=== PATIENT | male | born 1950 | race Caucasian/White ===

== ENCOUNTER → 2018-04-26 | Outpatient (REF) ==
[~2018-04-26] MED LIST: ADVAIR 250/28 DISKU1 IH; ALBUTEROL IH; FLONASE INH; LOTREL 10 MG-401 CAP PO; LOTREL 5 MG-401 CAP PO; METFORMIN500 MG PO; NAPROXEN SOD550 MG PO; NEXIUM40 MG PO; PHENTERMINE15 MG PO; PRISTIQ50 M1 PO; PULMICORT180 MCG/A1 IH; PULMICORT180 MCG/Ac IH; REQUIP XL2 MG PO; VITAMIN D50000 I1 PO; WELLBUTRIN XL300 M1 PO; WELLBUTRIN75 MG PO
== END ==
LOC: ZCOL.LAB 14:47
DX: R50.9 Fever, unspecified (principal)

== ENCOUNTER → 2018-04-26 | Outpatient (REF) ==
[2018-04-26 12:58] LABS: BASO # 0.1 (0.0-0.2); BASO % 0.5 % (0.0-2.0); EOS # 0.5 (0.0-0.7); EOS % 3.8 % (0-4.0); GRAN # 9.3 (1.4-6.5); HEMOGLOBIN 11.9 g/dl (13.5-18.0); LYMPH % 8.6 % (20.0-51.0); MEAN CELL VOLUME 88 fl (80.0-100.0); MEAN CORPUSCULAR HEMOGLOBIN 29 pg (27.0-31.0); MEAN CORPUSCULAR HGB CONC 33 g/dl (33.0-37.0); MEAN PLATELET VOLUME 9.7 fl (7.4-10.4); MONO # 1.1 (0.1-0.6); MONO % 9.4 % (1.7-9.3); PLATELET COUNT 311 K/mm3 (130-400); REDCELL DISTRIBUTION WIDTH-CV 13.2 % (11.5-14.5)
[2018-04-26 13:02] LABS: HEMATOCRIT 35.9 % (42.0-52.0)
== END ==
LOC: ZCOL.LAB 12:47
PROVIDERS: Family Medicine
DX: R50.9 Fever, unspecified (principal)

== ENCOUNTER 2019-02-13 01:26 | Inpatient (IN) | payer MEDICARE, BC ==
[2019-02-13] VITALS (284 sets, daily range): BP systolic 116–131; BP diastolic 74–81; PULSE 65–76; TEMP 98.2–98.4; O2SAT 92–100
[~2019-02-13] VITALS: Ht 165.1 cm; Wt 89.9 kg
[2019-02-13 02:02] LABS: BASO # 0.1 (0.0-0.2); BASO % 0.5 % (0.0-2.0); EOS # 0.4 (0.0-0.7); EOS % 3.9 % (0-4.0); GRAN # 5.5 (1.4-6.5); GRAN % 58.3 % (42.2-75.2); HEMATOCRIT 43.3 % (42.0-52.0); HEMOGLOBIN 14.4 g/dl (13.5-18.0); LYMPH # 2.7 (1.2-3.4); LYMPH % 28.6 % (20.0-51.0); MEAN CELL VOLUME 88 fl (80.0-100.0); MEAN CORPUSCULAR HEMOGLOBIN 29 pg (27.0-31.0); MEAN CORPUSCULAR HGB CONC 33 g/dl (33.0-37.0); MEAN PLATELET VOLUME 9.1 fl (7.4-10.4); MONO # 0.8 (0.1-0.6); PLATELET COUNT 310 K/mm3 (130-400); RED BLOOD COUNT 4.94 M/mm3 (4.20-5.60); REDCELL DISTRIBUTION WIDTH-CV 13.8 % (11.5-14.5)
[2019-02-13 02:07] LABS: PROTHROMBIN TIME 11.2 SECONDS (9.7-12.8)
[2019-02-13 02:13] LABS: ALANINE AMINOTRANSFERASE 17 U/L (21-72); ALBUMIN 4.3 gm/dL (3.5-5.0); ALKALINE PHOSPHATASE 67 U/L (50-136); ANION GAP 10 mmol/L (7-16); AST,SGOT 21 U/L (15-37); BILIRUBIN,TOTAL 0.3 mg/dL (0.0-1.0); BLOOD UREA NITROGEN 20 mg/dL (9-20); CALCIUM 9.2 mg/dL (8.4-10.2); CARBON DIOXIDE 26 mmol/L (22-30); CHLORIDE 103 mmol/L (98-107); CREATININE, serum 0.79 (0.66-1.25); GLUCOSE 118 mg/dL (74-106); POTASSIUM 3.6 mmol/L (3.4-5.0); SODIUM 139 mmol/L (137-145); TOTAL PROTEIN 7.3 gm/dL (6.4-8.2)
[2019-02-13 02:24] LABS: TROPONIN-I < 0.012 ng/mL (0.000-0.035)
[2019-02-13] MEDS ORDERED: BREO ELLIPTA 21 EACH IH (02:36)
[2019-02-13] MEDS ORDERED: FLONASE NASAL S16 GM NS (02:37)
[2019-02-13] MEDS ORDERED: PROVENTIL0.09 MG/A1 IH (02:37)
[2019-02-13] MEDS ORDERED: SINGULAIR 110 MG/TAB PO (02:38)
[2019-02-13] MEDS ORDERED: XYZAL5 MG PO (02:38)
[2019-02-13] MEDS ORDERED: CIALIS5 MG PO (02:39)
[2019-02-13] MEDS ORDERED: NEXIUM 40MG40 MG PO (02:39)
[2019-02-13] MEDS ORDERED: ULTRAM 50MG TAB50 MG PO (03:03)
[2019-02-13] MEDS ORDERED: SOMA 350MG350 MG/TAB PO (03:03)
--- NOTE | 2019-02-13 03:30 | NUR ---
RECEIVED REPORT FROM JEREMIAS SIMMONS IN THE ER. AWAITING ARRIVAL OF PT TO [facility].
--- NOTE | 2019-02-13 03:40 | NUR ---
PT ARRIVES TO [facility]. PT TRANSFERS SELF TO BED AND PLACED ON CONTINUOUS COMPUTER SUPPORT SPECIALIST INSTRUCTOR. CALL LIGHT EDUCATION GIVEN, VERBALIZED UNDERSTANDING. EDUCATED PT ON REMINDER TO CALL IF NEEDING TO GET OOB TO PREVENT FALLS, VERBALIZED UNDERSTANDING. CARDIZEM GTT CONTINUES FROM ER AT 5MG/HR. NOTED PT TO BE IN SR UPON ADMISSION TO ICU. PT DENIES ANY CP OR SHOB AT ADMISSION. URINAL PLACED WITHIN REACH.
--- NOTE | 2019-02-13 04:00 | NUR ---
DR SAM AT BEDSIDE FOR ASSESSMENT AND DISCUSSING POC WITH PT.
--- NOTE | 2019-02-13 04:10 | NUR ---
DR SAM DISCUSSED POC WITH NURSE, CONTINUE CARDIZEM GTT, GIVE PO MEDICATION AT 0500, THEN TURN OFF GTT AT 0600. WILL MONITOR CLOSELY.
--- NOTE | 2019-02-13 04:57 | NUR ---
DR TYLER NOTIFIED OF CONSULT. UPDATED ON PT'S STATUS, HR, ECHO ORDER ALREADY PLACED. STATES WILL SEE PT IN THE MORNING FOR EVALUATION. PT NOTIFIED. VERBALIZED UNDERSTANDING.
--- NOTE | 2019-02-13 07:30 | NUR ---
Bedside report received from JEREMIAS Grissom. Pt resting in bed. VSS.
--- NOTE | 2019-02-13 08:00 | NUR ---
Assessment completed. Pt in bed. No complaints at this time. HR SR on monitor. Discussed plan of care r/t medications, heart rhythm and doctors rounding. Pt verbalized understanding. solar installation technician at bedside setting up. Call light in reach.
--- NOTE | 2019-02-13 09:15 | NUR ---
PROPERTY ASSISTANT student met with the patient to discuss a discharge plan. The patient lives in [place] with his , Tamara. The patient has a cane and walker, if needed and reports independence with ADLs. The patient's PCP is Dr. Hernandez and patient receives medications from [facility] with no difficulties. The patient does not have advanced directives in the EMR but reports they are completed and designate his , Tamara. The patient plans to return home upon discharge with Tamara providing transportation. There are no additional needs at this time.
--- NOTE | 2019-02-13 10:40 | NUR ---
Initial visit; Patient thanked Legal Summer Intern for looking in on him and wishing him God's blessings.
[2019-02-13] MEDS ORDERED: ELIQUIS 5MG PO (12:08)
[2019-02-13] MEDS ORDERED: MULTAQ400 MG PO (12:09)
--- NOTE | 2019-02-13 12:20 | NUR ---
Called pt's PCP Dr Hernandez for follow up appointment. Discused with Dr Hernandez's RN pt's diagnosis, medications and discharge today. Follow up appointment is Feb 27 at 11:30am with Dr Hernandez.
--- NOTE | 2019-02-13 13:30 | NUR ---
Discharge paperwork given to pt. Discussed discharge instructions, education, medications and follow up appointments with pt and pt's . Answered all questions to pt's satisfaction. Pt signed discharge paperwork and is placed in chart.
--- NOTE | 2019-02-13 13:31 | NUR ---
Pt discharged from [facility]. Pt left unit and walked to private vehicle driven by spouse.
== END 2019-02-13 13:31 | disposition home or self-care (01) | DRG 310 ==
LOC: COL.ER 01:26 → IMCU 02:47
PROVIDERS: Emergency Medicine
DX: I48.0 Paroxysmal atrial fibrillation (principal); I10 Essential (primary) hypertension; J45.909 Unspecified asthma, uncomplicated; K21.9 Gastro-esophageal reflux disease without esophagitis; F32.9 Major depressive disorder, single episode, unspecified; M48.061 Spinal stenosis, lumbar region without neurogenic claudication; M54.16 Radiculopathy, lumbar region; Z90.79 Acquired absence of other genital organ(s); Z85.46 Personal history of malignant neoplasm of prostate
CPT/HCPCS: 99223-AI; 99239; J1650; J7030

== ENCOUNTER → 2020-03-28 | Outpatient (RCR) | payer MEDICARE, BC ==
[~2020-03-28] MED LIST changes: +BREO ELLIPTA 21 EACH IH; +CIALIS5 MG PO; +ELIQUIS 5MG PO; +FLONASE NASAL S16 GM NS; +MULTAQ400 MG PO; +NEXIUM 40MG40 MG PO; +PROVENTIL0.09 MG/A1 IH; +SINGULAIR 110 MG/TAB PO; +SOMA 350MG350 MG/TAB PO; +ULTRAM 50MG TAB50 MG PO; +XYZAL5 MG PO
== END | disposition home or self-care (01) ==
LOC: WSST
DX: J04.0 Acute laryngitis (principal); R13.10 Dysphagia, unspecified

== ENCOUNTER 2020-05-26 11:15 | Outpatient (RCR) | payer MEDICARE, BC | END 2020-07-12 | disposition home or self-care (01) | LOC: WSST | DX: R13.13 Dysphagia, pharyngeal phase (principal); R49.0 Dysphonia; J04.0 Acute laryngitis ==

== ENCOUNTER 2021-08-30 07:42 | Emergency (ER) | payer MEDICARE, BC ==
[~2021-08-30] VITALS: Ht 165.1 cm; Wt 86.4 kg
[2021-08-30 07:52] VITALS: TEMP 98.1
[2021-08-30 08:07] LABS: BASO % 0.3 % (0.0-2.0); EOS # 0.1 K/mm3 (0.0-0.7); EOS % 0.9 % (0.0-4.0); GRAN # 6.8 K/mm3 (1.4-6.5); GRAN % 70.3 % (42.2-75.2); HEMATOCRIT 39.5 % (42.0-52.0); HEMOGLOBIN 13.9 g/dl (13.5-18.0); LYMPH # 1.8 K/mm3 (1.2-3.4); LYMPH % 18.9 % (20.0-51.0); MEAN CELL VOLUME 84 fl (80.0-100.0); MEAN CORPUSCULAR HEMOGLOBIN 30 pg (27-31); MEAN CORPUSCULAR HGB CONC 35 g/dl (33.0-37.0); MONO # 0.9 K/mm3 (0.1-0.6); MONO % 9.1 % (1.7-9.3); PLATELET COUNT 357 K/mm3 (130-400); RED BLOOD COUNT 4.71 M/mm3 (4.20-5.60); REDCELL DISTRIBUTION WIDTH-CV 12.8 % (11.5-14.5)
[2021-08-30 08:28] LABS: BILIRUBIN,TOTAL 0.5 mg/dL (0.2-1.2); CREATININE, serum 0.8 mg/dL (0.72-1.25); POTASSIUM 3.6 mmol/L (3.5-4.5); TOTAL PROTEIN 7.2 gm/dL (6.2-8.1)
[2021-08-30] MEDS ORDERED: ZESTRIL 20MG TA20 MG PO (08:41)
[2021-08-30] MEDS ORDERED: 00186-0370-20 IH (08:41)
[2021-08-30] MEDS ORDERED: FLOMAX 0.40.4 MG/CAP PO (08:42)
[2021-08-30] MEDS ORDERED: VITAMIN C500 MG PO (08:42)
[2021-08-30] MEDS ORDERED: COMPLETE MULTI1 TAB PO (08:42)
[2021-08-30] MEDS ORDERED: VITAMIN D31000 I1 PO (08:42)
[2021-08-30] MEDS ORDERED: CITRACAL + D CA1 TAB (08:43)
[2021-08-30] MEDS ORDERED: CEPHALEXIN500 M1 PO (11:14)
[2021-08-30 11:55] VITALS: BP 139/85; PULSE 73
== END 2021-08-30 12:10 | disposition home or self-care (01) ==
LOC: COL.ER 07:42
PROVIDERS: Emergency Medicine
DX: I48.91 Unspecified atrial fibrillation (principal); Z79.01 Long term (current) use of anticoagulants
CPT/HCPCS: C1764; J2704; J7030

== ENCOUNTER 2023-03-31 05:57 | Inpatient (IN) | payer MEDICARE, BC ==
[2023-03-31] VITALS (9 sets, daily range): BP systolic 130–159; BP diastolic 72–95; PULSE 48–136; TEMP 97.7–98.3
[~2023-03-31] VITALS: Ht 165.1 cm; Wt 82.7 kg
[~2023-03-31 05:57] MED LIST changes: +00186-0370-20 IH; +CEPHALEXIN500 M1 PO; +CITRACAL + D CA1 TAB; +COMPLETE MULTI1 TAB PO; +FLOMAX 0.40.4 MG/CAP PO; +VITAMIN C500 MG PO; +VITAMIN D31000 I1 PO; +ZESTRIL 20MG TA20 MG PO
[2023-03-31 06:28] LABS: BASO # 0.1 K/mm3 (0.0-0.2); BASO % 1.7 % (0.0-2.0); EOS # 0.5 K/mm3 (0.0-0.7); EOS % 6.9 % (0.0-4.0); GRAN # 3.1 K/mm3 (1.4-6.5); HEMATOCRIT 42.9 % (42.0-52.0); HEMOGLOBIN 14.2 g/dl (13.5-18.0); LYMPH # 2.3 K/mm3 (1.2-3.4); LYMPH % 34.5 % (20.0-51.0); MEAN CELL VOLUME 90 fl (80.0-100.0); MEAN CORPUSCULAR HEMOGLOBIN 30 pg (27-31); MEAN CORPUSCULAR HGB CONC 33 g/dl (33.0-37.0); MEAN PLATELET VOLUME 9.3 fl (7.4-10.4); MONO # 0.6 K/mm3 (0.1-0.6); MONO % 9.6 % (1.7-9.3); PLATELET COUNT 318 K/mm3 (130-400); RED BLOOD COUNT 4.78 M/mm3 (4.20-5.60); REDCELL DISTRIBUTION WIDTH-CV 13.2 % (11.5-14.5)
[2023-03-31 06:32] LABS: INR 1.2 (0.8-3.0); PARTIAL THROMBOPLASTIN TIME 36.7 SECONDS (26.0-37.0); PROTHROMBIN TIME 12.6 SECONDS (9.7-12.8)
[2023-03-31 06:41] LABS: ALBUMIN 4.1 gm/dL (3.4-4.8); BILIRUBIN,TOTAL 0.3 mg/dL (0.2-1.2); C-REACTIVE PROTEIN 0.07 mg/dL (0.00-0.50); CALCIUM 9.2 mg/dL (8.4-10.2); CREATININE, serum 0.89 mg/dL (0.72-1.25); MAGNESIUM 1.9 mg/dL (1.6-2.6); POTASSIUM 3.9 mmol/L (3.5-4.5); TOTAL PROTEIN 7.7 gm/dL (6.2-8.1)
[2023-03-31 06:48] LABS: TROPONIN-I 0.014 ng/mL (0.00-0.033)
[2023-03-31] MEDS ORDERED: COZAAR 50MG50 MG/TAB PO (07:06)
[2023-03-31] MEDS ORDERED: ROBAXIN 75750 MG/TAB PO (07:10)
[2023-03-31] MEDS ORDERED: MOBIC15 MG PO (07:10)
[2023-03-31] MEDS ORDERED: ASTEPRO AL205.5 MCG/ NS (07:11)
--- NOTE | 2023-03-31 07:54 | NUR ---
report recieved from ER
--- NOTE | 2023-03-31 08:15 | NUR ---
ALLEN ARRIVED FROM ER VIA STRETCHER, HIS AND MAIL HANDLERS SUPERVISOR AT BEDSIDE. PATIENTS CARDIZEM INFUSING AT 5MG/HR. PATIENTS ONLY COMPLAINT AT THIS TIME IS DIZZYNESS. PATIENTS BP SLIGHTLY ELEVATED. ADMITTING MD NOTIFIED OF THE ABOVE. PATIENT NOW RESTING IN BED, HIS AT BEDSIDE.
--- NOTE | 2023-03-31 13:49 | NUR ---
DR TYLER INFORMED PATIENT HR ON THE MONITOR 47 BPM. PATIENT DENIES ANY SOB OR DIZZINESS AT THIS TIME. HE IS AWAKE AND ALERT. NO NEW ORDERS AT THIS TIME, PER PHYSICIAN IF PATIENT HR REACHES 35 NOTIFY NURSE COLLEGE.
--- NOTE | 2023-03-31 19:18 | NUR ---
report received from kvng montejo. pt sitting in recliner watching football games. pt denies pain. call light in reach. all needs met at this time.
--- NOTE | 2023-03-31 21:33 | NUR ---
shift assessment complete, see documentation. pt tolerated hs meds well. pt asymptomatic of his atrial fibrilation. pt denies chest pain and sob. call light in reach. all needs met at this time.
[2023-04-01] VITALS (13 sets, daily range): BP systolic 131–174; BP diastolic 73–93; PULSE 48–58; TEMP 97.5–98.2
--- NOTE | 2023-04-01 03:30 | NUR ---
pt running slightly hypertensive. updated kourtney claros. new orders for prn hydralazine. call light in reach. all needs met at this time.
--- NOTE | 2023-04-01 03:52 | NUR ---
prn hydralazine administered per orders. pt remains asymptomatic. call light in reach. all needs met at this time.
--- NOTE | 2023-04-01 05:57 | NUR ---
pt bp recheck showed 155/78. pt still asymptomatic. call light in reach. all needs met at this time.
[2023-04-01 06:30] LABS: BASO # 0.1 K/mm3 (0.0-0.2); BASO % 1.2 % (0.0-2.0); EOS # 0.5 K/mm3 (0.0-0.7); EOS % 6.9 % (0.0-4.0); GRAN # 4.4 K/mm3 (1.4-6.5); GRAN % 59.8 % (42.2-75.2); HEMATOCRIT 37.7 % (42.0-52.0); HEMOGLOBIN 12.9 g/dl (13.5-18.0); LYMPH # 1.7 K/mm3 (1.2-3.4); LYMPH % 22.9 % (20.0-51.0); MEAN CELL VOLUME 86 fl (80.0-100.0); MEAN CORPUSCULAR HEMOGLOBIN 29 pg (27-31); MEAN CORPUSCULAR HGB CONC 34 g/dl (33.0-37.0); MEAN PLATELET VOLUME 9.4 fl (7.4-10.4); MONO # 0.7 K/mm3 (0.1-0.6); MONO % 8.9 % (1.7-9.3); PLATELET COUNT 293 K/mm3 (130-400); RED BLOOD COUNT 4.41 M/mm3 (4.20-5.60)
[2023-04-01 06:45] LABS: CALCIUM 8.8 mg/dL (8.4-10.2); CREATININE, serum 0.85 mg/dL (0.72-1.25); MAGNESIUM 1.7 mg/dL (1.6-2.6); POTASSIUM 3.8 mmol/L (3.5-4.5)
--- NOTE | 2023-04-01 09:20 | NUR ---
PT LAYING IN BED UPON ENTERING WITH PERSONAL CPAP ON. ASSESSMENT DONE, MEDS GIVEN PER ORDER. PT REPORTS A HEADACHE AND GIVEN TX TYLENOL. PT DENIES CHEST PAIN, SHORTNESS OF BREATH, OR PALPITATIONS AT THIS TIME. DR TYLER AT BEDSIDE. LEFT AC INT FLUSHES WITHOUT COMPLICATIONS. QTC THIS MORNING 486 AND PT GIVEN SOTALOL. PT DENIES NEEDS AT THIS TIME. BED IN LOWEST POSITION, CALL LIGHT IN REACH
--- NOTE | 2023-04-01 10:16 | NUR ---
Initial visit attempt; Patient undergoing Testing. Splicing Machine Operator left card offering Spiritual Care and God's blessings.
--- NOTE | 2023-04-01 13:34 | NUR ---
campaign worker met with patient to discuss discharge planning. Patient lives in [place] with is , Daniella, P# [phone]. PCP is Dr. Hernandez and preferred pharmacy is [facility]. No issues affording medications. Patient reports he has a DPOA-HC and living will appointing his as primary and his son as secondary. Patient has a CPAP at home that he utilizes. Patient reports being independent at home and is able to get transportation to and from appointments. Patient would like to return home at time of discharge. SW contacted patient's PCP whom expressed patient has a DPOA on file appointing his as the agent. PCP is faxing a copy of the DPOA to the hospital. SW will add to patient's chart when she receives it. Discharge Plan: Home
--- NOTE | 2023-04-01 16:36 | NUR ---
central office worker received DPOA-HC from [facility]. SW placed a copy in patient's chart. Discharge Plan: Home
--- NOTE | 2023-04-01 18:24 | NUR ---
PT SITTING IN CHAIR UPON ENTERING. PT REPORTS IMPROVED HEADACHE AND DENIES NEEDS AT THIS TIME. CALL LIGHT IN REACH
--- NOTE | 2023-04-01 18:52 | NUR ---
REPORT GIVEN TO MANDI MEJIA
--- NOTE | 2023-04-01 19:55 | NUR ---
Bedside report received from JEREMIAS Vega. Pt is currently resting in bed with no complaints at this time. Call light within reach.
[2023-04-02] VITALS (7 sets, daily range): BP systolic 131–157; BP diastolic 75–82; PULSE 47–49; TEMP 97.7–97.9
--- NOTE | 2023-04-02 05:51 | NUR ---
Shift assessment completed. VSS. Pt slept through the night this shift with no complaints of pain. Snack provided upon request. Call light within reach.
--- NOTE | 2023-04-02 06:48 | NUR ---
Bedside report given to JEREMIAS Vega.
--- NOTE | 2023-04-02 08:50 | NUR ---
PT RESTING IN BED UPON ENTERING. ASSESSMENT DONE, MEDS GIVEN PER ORDER. QTC 481 AND SOTALOL GIVEN. PT DENIES PAIN OR DISCOMFORT AT THIS TIME. BED IN LOWEST POSITION, CALL LIGHT IN REACH
[2023-04-02 11:51] LABS: CREATININE, serum 0.87 mg/dL (0.72-1.25); MAGNESIUM 1.7 mg/dL (1.6-2.6); POTASSIUM 4.1 mmol/L (3.5-4.5)
[2023-04-02] MEDS ORDERED: BETAPACE 80MG80 MG PO (11:57)
[2023-04-02] MEDS ORDERED: NORVASC 10MG10 MG PO (11:57)
[2023-04-02] MEDS ORDERED: COZAAR100 MG PO (11:57)
--- NOTE | 2023-04-02 14:28 | NUR ---
TELE REMOVED. MAGNESIUM INFUSION COMPLETE AND IV DISCONTINUED. PT GIVEN DISCHARGE INSTRUCTIONS FOR FOLLOW UP APPTS AND MEDICATION CHANGES. PT VERBALIZED UNDERSTANDING. PT DRESSED IN PERSONAL CLOTHES AND IS WAITING FOR A RIDE. PT DENIES NEEDS AT THIS TIME AND NOTIFIED TO USE CALL LIGHT WHEN RIDE GETS HERE
--- NOTE | 2023-04-02 14:48 | NUR ---
PT ESCORTED TO PERSONAL VEHICLE VIA WHEELCHAIR BY THIS NURSE. PT HAS BELONGINGS AND WITH FAMILY
== END 2023-04-02 14:48 | disposition home or self-care (01) | DRG 310 ==
LOC: COL.ER 05:57 → MEDICAL 07:45
PROVIDERS: Emergency Medicine; Physician Assistant; ADMIT Internal Medicine
DX: I48.91 Unspecified atrial fibrillation (principal); I10 Essential (primary) hypertension; G47.33 Obstructive sleep apnea (adult) (pediatric); J45.909 Unspecified asthma, uncomplicated; N40.0 Benign prostatic hyperplasia without lower urinary tract symptoms; H26.9 Unspecified cataract; I44.0 Atrioventricular block, first degree; K21.9 Gastro-esophageal reflux disease without esophagitis; I08.1 Rheumatic disorders of both mitral and tricuspid valves; I44.7 Left bundle-branch block, unspecified; F32.A Depression, unspecified; Z99.89 Dependence on other enabling machines and devices; Z79.01 Long term (current) use of anticoagulants; Z90.79 Acquired absence of other genital organ(s); Z95.818 Presence of other cardiac implants and grafts; Z85.46 Personal history of malignant neoplasm of prostate; Z79.899 Other long term (current) drug therapy; Z23 Encounter for immunization
CPT/HCPCS: J0360; J3475

== ENCOUNTER 2023-06-03 06:40 | Inpatient (IN) | payer MEDICARE, BC ==
[2023-06-03] VITALS (18 sets, daily range): BP systolic 11–137; BP diastolic 60–82; PULSE 51–103; TEMP 97.7–98.4
[~2023-06-03] VITALS: Ht 165.1 cm; Wt 85.0 kg
[~2023-06-03 06:40] MED LIST changes: +ASTEPRO AL205.5 MCG/ NS; +BETAPACE 80MG80 MG PO; -CITRACAL + D CA1 TAB; +CITRACAL + D CA1 TAB PO; +COZAAR 50MG50 MG/TAB PO; +COZAAR100 MG PO; +MOBIC15 MG PO; +NORVASC 10MG10 MG PO; +ROBAXIN 75750 MG/TAB PO
[2023-06-03 07:33] LABS: BASO # 0.1 K/mm3 (0.0-0.2); BASO % 0.8 % (0.0-2.0); EOS # 0.4 K/mm3 (0.0-0.7); EOS % 5.2 % (0.0-4.0); GRAN # 3.5 K/mm3 (1.4-6.5); GRAN % 49.8 % (42.2-75.2); HEMOGLOBIN 15.5 g/dl (13.5-18.0); LYMPH # 2.5 K/mm3 (1.2-3.4); LYMPH % 34.6 % (20.0-51.0); MEAN CELL VOLUME 86 fl (80.0-100.0); MEAN CORPUSCULAR HEMOGLOBIN 30 pg (27-31); MEAN CORPUSCULAR HGB CONC 34 g/dl (33.0-37.0); MEAN PLATELET VOLUME 9.4 fl (7.4-10.4); MONO # 0.7 K/mm3 (0.1-0.6); MONO % 9.3 % (1.7-9.3); PLATELET COUNT 298 K/mm3 (130-400); RED BLOOD COUNT 5.23 M/mm3 (4.20-5.60); REDCELL DISTRIBUTION WIDTH-CV 13.2 % (11.5-14.5)
[2023-06-03] MEDS ORDERED: dilTIAZem 25 MG/5 ML VIAL IV ONE (07:45)
[2023-06-03 07:47] LABS: ALANINE AMINOTRANSFERASE 15 U/L (0-55); ALBUMIN 4.2 gm/dL (3.4-4.8); ALKALINE PHOSPHATASE 72 U/L (40-150); ANION GAP 13 mmol/L (7-16); AST,SGOT 22 U/L (5-34); BILIRUBIN,TOTAL 0.4 mg/dL (0.2-1.2); BLOOD UREA NITROGEN 15 mg/dL (8-26); CALCIUM 9.7 mg/dL (8.4-10.2); CARBON DIOXIDE 22 mmol/L (23-31); CHLORIDE 103 mmol/L (98-107); CREATININE, serum 0.92 mg/dL (0.72-1.25); GLUCOSE 120 mg/dL (70-99); POTASSIUM 3.7 mmol/L (3.5-4.5); SODIUM 138 mmol/L (136-145); TOTAL PROTEIN 7.4 gm/dL (6.2-8.1)
[2023-06-03 07:58] LABS: TROPONIN-I < 0.010 ng/mL (0.00-0.033)
[2023-06-03] MEDS ORDERED: Ketorolac 15 MG/ML VIAL IV ONE (08:00)
[2023-06-03] MEDS ORDERED: fentaNYL 50 MCG/ML 2 ML VIAL IV ONE (08:00)
[2023-06-03] MEDS ORDERED: Ondansetron 4 MG/2 ML VIAL IV PRN (08:15)
[2023-06-03] MEDS ORDERED: Polyethylene Glycol 3350 17 GM PDS PO PRN (08:15)
[2023-06-03] MEDS ORDERED: Acetaminophen 500 MG TAB PO PRN (08:15)
[2023-06-03] MEDS ORDERED: Apixaban 5 MG TAB PO SCH (10:20)
--- NOTE | 2023-06-03 10:45 | NUR ---
Pt arrived to room 331 with diagnosis of Afib w/RVR. Cardizem infusing per MD order to LFA without s/s complications. Plan for CV later today. VSS- see flowsheet. Denies pain or needs.
[2023-06-03] MEDS ORDERED: Methocarbamol 750 MG TAB PO PRN (11:45)
[2023-06-03] MEDS ORDERED: Meloxicam 7.5 MG TAB PO PRN (11:45)
--- NOTE | 2023-06-03 11:50 | NUR ---
Pt to label printing machinist via bed. LR infusing at TKO. Cardizem continues to infuse.
[2023-06-03] MEDS ORDERED: Lidocaine PF 2% (20 MG/ML) 2 ML VIAL ONE (11:52)
--- NOTE | 2023-06-03 12:30 | NUR ---
Returned to room from metallurgical lab technician. VSS-see flowsheet. Pt a/o x4. Denies pain or needs.
--- NOTE | 2023-06-03 16:00 | NUR ---
Tylenol administered at 1436 for c/o headache which patient reports is now resolved. VSS. Denies pain or needs at this time.
[2023-06-03] MEDS ORDERED: Formoterol 20 MCG,Budesonide 0.5 MG IH SCH (19:00)
--- NOTE | 2023-06-03 19:04 | NUR ---
Pt sitting up on couch eating supper with . Denies pain or needs.
--- NOTE | 2023-06-03 20:00 | NUR ---
PT SITTING UP IN RECLINER. VSS ON ROOM AIR. ON TELE SR. A&O X4. DENYING PAIN. INT TO LEFT FOREARM PATENT. PT STATES HE FORGOT HOME CPAP & WONDERING IF WE HAVE AN EXTRA ONE, RT NOTIFIED. PT IND IN ROOM & DENYING OTHER NEEDS. CALL LIGHT IN REACH
[2023-06-03] MEDS ORDERED: Metoprolol Tartrate 25 MG TAB PO SCH (21:00)
[2023-06-03] MEDS ORDERED: Azelastine 0.1% Nasal Spray 30 ML BOTTLE NS SCH (21:00)
[2023-06-04] VITALS (7 sets, daily range): BP systolic 122–153; BP diastolic 71–78; PULSE 61–62; TEMP 96.4–98
--- NOTE | 2023-06-04 01:37 | NUR ---
pt sitting up in recliner watching tv. pt reports not being able to sleep. denies further needs. call light in reach
--- NOTE | 2023-06-04 04:00 | NUR ---
PT RESTING IN BED WITH UNLABORED RESP & CPAP ON. CALL LIGHT IN REACH
[2023-06-04] MEDS ORDERED: Esomeprazole 40 MG **** subs to Pantoprazole 40 MG PO SCH (07:00)
[2023-06-04 08:04] LABS: CALCIUM 8.8 mg/dL (8.4-10.2); CREATININE, serum 0.9 mg/dL (0.72-1.25); MAGNESIUM 1.8 mg/dL (1.6-2.6); POTASSIUM 4.3 mmol/L (3.5-4.5)
[2023-06-04] MEDS ORDERED: LOPRESSOR 225 MG/TAB PO (08:53)
[2023-06-04] MEDS ORDERED: buPROPion XL (24-HR) 150 MG TAB PO SCH (09:00)
[2023-06-04] MEDS ORDERED: Fluticasone Nasal 50 MCG/Spray 16 GM BOTTLE NS SCH (09:00)
--- NOTE | 2023-06-04 09:54 | NUR ---
Railroad Maintenance Clerk attended clinical rounds with the team and patient could possibly discharge home today pending cardiology clearance. Patient lives in [place] with his , Daniella (ph#[phone]) and sees Dr. Hernandez for primary care. Patient gets medications from [facility] and uses a home CPAP. Patient is able to drive himself to medical appointments and is independent with ADLS. Patient reported his , Daniella is his DPOA-HC. Patient is hopeful to return home today. Discharge Plan: Home
--- NOTE | 2023-06-04 13:06 | NUR ---
D: Initial visit: Chief Controller Center stopped by room on rounds. Pt was up and walking around. A: Pt is excited to be discharged today. No needs right now. P: Chief Controller Center informed pt that if he needed anything from the lathe operator area to let his nurse know. Chief Controller Center will follow up as needed.
--- NOTE | 2023-06-04 13:55 | NUR ---
PATIENT DISCHARGE INSTRUCTIONS GIVEN. PATIENT QUESTIONS ANSWERED. INSTRUCTED TO CALL WHEN RIDE HAD ARRIVED TO BE ESCORTED OUT IN WHEELCHAIR BY [facility]. CALL LIGHT WITHIN REACH.
--- NOTE | 2023-06-04 14:30 | NUR ---
PATIENT ESCORTED OUT IN WHEELCHAIR BY [facility].
== END 2023-06-04 14:30 | disposition home or self-care (01) | DRG 310 ==
LOC: COL.ER 06:40 → SURG 08:15
PROVIDERS: Personal Emergency Response Attendant; ADMIT Internal Medicine
PROC: 5A2204Z Restoration of Cardiac Rhythm, Single (ICD-10-PCS; principal; 2023-06-03)
DX: I48.91 Unspecified atrial fibrillation (principal); Z79.01 Long term (current) use of anticoagulants; I10 Essential (primary) hypertension; J45.909 Unspecified asthma, uncomplicated; G47.33 Obstructive sleep apnea (adult) (pediatric)
CPT/HCPCS: J2704